=== PATIENT | male | born 1955 | race Two or more races ===

== ENCOUNTER 2024-04-05 10:34 | Emergency (ER) | payer OTHER, BC ==
[2024-04-05 10:51] VITALS: BP 129/69; PULSE 88; RESP 18; TEMP 97.7; BMI 16.2
[2024-04-05 12:15] LABS: BASO % 0.6 % (0-2.0); EOS % 0.2 % (0-4.5); HEMATOCRIT 39.9 % (35.4-49); HEMOGLOBIN 14.4 GM/dL (11.7-16.9); LYMPH % 14.7 % (8-40); MCH 30.3 pg (25.7-33.7); MEAN CELL VOLUME 84.1 fl (80-96); MEAN PLT VOLUME 9.3 fl (7.5-11.1); MONO % 8.9 % (3.8-10.2); NEUT % 75.6 % (42.8-82.8); PLATELET COUNT 206 10^3/uL (134-434); RBC 4.74 M/mm3 (4.00-5.60); RDW 14.6 % (11.9-15.9); WHITE BLOOD COUNT 6.9 K/mm3 (4.0-10.0)
[2024-04-05 12:22] LABS: INR 1.19 (0.83-1.09); PROTHROMBIN TIME (PATIENT) 13.6 SEC (9.7-13.0)
[2024-04-05 12:25] LABS: EPI CELLS 6 /uL (0-25.1); HYALINE CASTS 0 /uL (0-3.1); URINE APPEARANCE CLEAR; URINE BACTERIA 1 /uL (0-1359); URINE BILIRUBIN NEGATIVE (NEGATIVE); URINE COLOR YELLOW; URINE GLUCOSE (UA) 2+ (NEGATIVE); URINE KETONE 2+ (NEGATIVE); URINE LEUK ESTERASE NEGATIVE (NEGATIVE); URINE NITRITE NEGATIVE (NEGATIVE); URINE PROTEIN 1+ (NEGATIVE); URINE RBC 7 /uL (0-23.9); URINE WBC 8 /uL (0-25.8)
[2024-04-05 12:32] LABS: POTASSIUM 3.5 mmol/L (3.5-5.1)
[2024-04-05 12:34] LABS: BLOOD UREA NITROGEN 19.4 mg/dL (7-18)
[2024-04-05 12:35] LABS: ALBUMIN 3.4 g/dl (3.4-5.0)
[2024-04-05 12:37] LABS: CALCIUM 8.7 mg/dL (8.5-10.1); MAGNESIUM 1.8 mg/dL (1.8-2.4)
[2024-04-05 12:38] LABS: CREATININE 0.7 mg/dL (0.55-1.3)
[2024-04-05 12:40] LABS: BILIRUBIN,TOTAL 0.9 mg/dL (0.2-1)
[2024-04-05] MEDS: SODIUM CHLORIDE 1,000 ML IV ONE (14:37)
== END 2024-04-05 17:00 | disposition home or self-care (01) ==
LOC: JER 10:34
PROC: 3E0337Z Introduction of Electrolytic and Water Balance Substance into Peripheral Vein, Percutaneous Approach (ICD-10-PCS; principal; 2024-04-05)
DX: R53.1 Weakness (principal); R10.30 Lower abdominal pain, unspecified; R53.81 Other malaise; R63.0 Anorexia; Z20.822 Contact with and (suspected) exposure to COVID-19
CPT/HCPCS: 0241U-QW; 36415; 70260-TC-FY; 70450-TC; 71045-TC-FY; 74018-TC-FY; 80053; 81003; 82962; 83735; 84484; 85025; 85610; 85730; 93005; 93010; 99285-25

== ENCOUNTER 2024-04-19 22:14 | Emergency (ER) | payer OTHER, BC ==
[2024-04-19 22:18] VITALS: TEMP 97.7; BMI 18.6
[2024-04-19] MEDS ORDERED: LIDOCAINE HCL 2% JELLY 6 ML TP ONE (23:17)
[2024-04-19] MEDS: LIDOCAINE HCL 2% JELLY 6 ML TP ONE (23:26)
[2024-04-19] MEDS: LIDOCAINE HCL 2% JELLY 10 ML CARTRIDGE UR ONE (23:41)
[2024-04-19 23:47] LABS: BASO % 0.4 % (0-2.0); EOS % 0.1 % (0-4.5); HEMATOCRIT 40.4 % (35.4-49); HEMOGLOBIN 14.4 GM/dL (11.7-16.9); LYMPH % 9.2 % (8-40); MCH 30.2 pg (25.7-33.7); MCHC 35.6 g/dl (32.0-35.9); MEAN CELL VOLUME 84.6 fl (80-96); MEAN PLT VOLUME 9.5 fl (7.5-11.1); MONO % 8.5 % (3.8-10.2); NEUT % 81.8 % (42.8-82.8); PLATELET COUNT 192 10^3/uL (134-434); RBC 4.77 M/mm3 (4.00-5.60); RDW 14.6 % (11.9-15.9); WHITE BLOOD COUNT 10.3 K/mm3 (4.0-10.0)
[2024-04-19 23:49] LABS: EPI CELLS 14 /uL (0-25.1); HYALINE CASTS 2 /uL (0-3.1); PH,URINE 5.5 (5.0-8.0); URINE APPEARANCE CLEAR; URINE BACTERIA 4 /uL (0-1359); URINE BILIRUBIN 2+ (NEGATIVE); URINE COLOR DK YELLOW; URINE GLUCOSE (UA) 1+ (NEGATIVE); URINE KETONE 3+ (NEGATIVE); URINE LEUK ESTERASE NEGATIVE (NEGATIVE); URINE NITRITE NEGATIVE (NEGATIVE); URINE PROTEIN 1+ (NEGATIVE); URINE RBC 17 /uL (0-23.9); URINE WBC 12 /uL (0-25.8)
[2024-04-20 00:06] LABS: POTASSIUM 3.8 mmol/L (3.5-5.1)
[2024-04-20 00:09] LABS: ALBUMIN 3.3 g/dl (3.4-5.0); BLOOD UREA NITROGEN 14.7 mg/dL (7-18); CALCIUM 8.8 mg/dL (8.5-10.1); MAGNESIUM 1.7 mg/dL (1.8-2.4)
[2024-04-20 00:11] LABS: CREATININE 0.7 mg/dL (0.55-1.3)
[2024-04-20 00:13] LABS: BILIRUBIN,TOTAL 0.8 mg/dL (0.2-1); TOT PROT 5.7 g/dl (6.4-8.2)
[2024-04-20] MEDS ORDERED: CEPHALEXIN MONOHYDRATE 500 MG CAPSULE (UD) ONE (01:17)
[2024-04-20] MEDS ORDERED: MAGNESIUM OXIDE 400 MG TABLET (FP) ONE (01:17)
[2024-04-20] MEDS: MAGNESIUM OXIDE 400 MG TABLET (FP) PO ONE (01:21)
[2024-04-20] MEDS: CEPHALEXIN MONOHYDRATE 500 MG CAPSULE (UD) PO ONE (01:21)
[2024-04-20 01:40] VITALS: BP 133/71; PULSE 78; RESP 16
== END 2024-04-20 01:50 | disposition home or self-care (01) ==
LOC: JER 22:14
DX: R33.9 Retention of urine, unspecified (principal); R10.30 Lower abdominal pain, unspecified
CPT/HCPCS: 36415; 80053; 81003; 83735; 85025; 87086; 99284-25

== ENCOUNTER 2024-07-20 18:28 | Inpatient (IN) | payer OTHER, BC ==
[2024-07-20] MEDS: ONDANSETRON *ODT* 4 MG TABLET SL ONE (19:43)
[2024-07-20] MEDS ORDERED: ONDANSETRON *ODT* 4 MG TABLET ONE (19:43)
[2024-07-20] MEDS ORDERED: ACETAMINOPHEN 500 MG TABLET (FP) ONE (20:29)
[2024-07-20] MEDS: ACETAMINOPHEN 500 MG TABLET (FP) PO ONE (20:32)
[2024-07-20 21:32] LABS: HEMATOCRIT 40.9 % (35.4-49); MCH 31.4 pg (25.7-33.7); MCHC 34.2 g/dl (32.0-35.9); MEAN CELL VOLUME 91.8 fl (80-96); MEAN PLT VOLUME 8.9 fl (7.5-11.1); PLATELET COUNT 169 10^3/uL (134-434); RBC 4.46 M/mm3 (4.00-5.60); RDW 13.2 % (11.9-15.9)
[2024-07-20 21:56] LABS: INR 1.17 (0.83-1.09); PROTHROMBIN TIME (PATIENT) 13.2 SEC (9.7-13.0)
[2024-07-20 22:11] LABS: POTASSIUM 4.2 mmol/L (3.5-5.1)
[2024-07-20 22:13] LABS: CALCIUM 9.2 mg/dL (8.5-10.1)
[2024-07-20 22:14] LABS: BLOOD UREA NITROGEN 13.4 mg/dL (7-18)
[2024-07-20 22:15] LABS: ALBUMIN 3.5 g/dl (3.4-5.0)
[2024-07-20 22:17] LABS: CREATININE 0.7 mg/dL (0.55-1.3)
[2024-07-20 22:19] LABS: BILIRUBIN,TOTAL 0.5 mg/dL (0.2-1); TOT PROT 6.1 g/dl (6.4-8.2)
[2024-07-20 23:56] LABS: ANISOCYTOSIS 1+; MACROCYTOSIS 0
[2024-07-21] MEDS: CEFTRIAXONE 1 GM in DEXTROSE 5%-WATER - 50 ML IVPB SCH (03:19)
[2024-07-21 04:43] LABS: EPI CELLS 11 /uL (0-25.1); HYALINE CASTS 0 /uL (0-3.1); PH,URINE 7.5 (5.0-8.0); URINE APPEARANCE CLEAR; URINE BACTERIA 72 /uL (0-1359); URINE BILIRUBIN NEGATIVE (NEGATIVE); URINE COLOR YELLOW; URINE GLUCOSE (UA) 3+ (NEGATIVE); URINE KETONE TRACE (NEGATIVE); URINE LEUK ESTERASE 1+ (NEGATIVE); URINE NITRITE NEGATIVE (NEGATIVE); URINE PROTEIN NEGATIVE (NEGATIVE); URINE RBC 6 /uL (0-23.9); URINE UROBILINOGEN 0.2 mg/dL (0.2-1.0); URINE WBC 227 /uL (0-25.8)
[2024-07-21 07:44] LABS: INR 1.19 (0.83-1.09); PROTHROMBIN TIME (PATIENT) 13.4 SEC (9.7-13.0)
[2024-07-21 07:45] LABS: ACTIVATED PTT 26.8 SECONDS (25.2-36.5)
[2024-07-21 07:47] LABS: BASO % 0.3 % (0-2.0); EOS % 0.1 % (0-4.5); HEMATOCRIT 37.2 % (35.4-49); HEMOGLOBIN 12.7 GM/dL (11.7-16.9); LYMPH % 11.5 % (8-40); MCH 31.5 pg (25.7-33.7); MCHC 34.1 g/dl (32.0-35.9); MEAN CELL VOLUME 92.3 fl (80-96); MONO % 9.5 % (3.8-10.2); NEUT % 78.6 % (42.8-82.8); PLATELET COUNT 225 10^3/uL (134-434); RBC 4.03 M/mm3 (4.00-5.60); RDW 13.1 % (11.9-15.9); WHITE BLOOD COUNT 9.6 K/mm3 (4.0-10.0)
[2024-07-21 07:59] LABS: POTASSIUM 3.9 mmol/L (3.5-5.1)
[2024-07-21 08:10] LABS: ALBUMIN 2.8 g/dl (3.4-5.0); BLOOD UREA NITROGEN 12.1 mg/dL (7-18); CALCIUM 8.5 mg/dL (8.5-10.1)
[2024-07-21 08:11] LABS: MAGNESIUM 1.7 mg/dL (1.8-2.4)
[2024-07-21 08:13] LABS: CREATININE 0.5 mg/dL (0.55-1.3)
[2024-07-21 08:15] LABS: BILIRUBIN,TOTAL 0.4 mg/dL (0.2-1)
[2024-07-21 13:20] VITALS: BMI 15.5
[2024-07-21] MEDS: MUPIROCIN 2% TOPICAL OINTMENT FOR DECOLONIZATION NS SCH (14:24)
[2024-07-21] MEDS ORDERED: CHLORHEXIDINE GLUCONATE 4% CLEANSER FOR DECOLONIZATION TP SCH ×3 (22:00)
[2024-07-21] MEDS ORDERED: MUPIROCIN 2% TOPICAL OINTMENT FOR DECOLONIZATION NS SCH ×2 (22:00)
[2024-07-22] MEDS: glipiZIDE 5 MG TABLET (FP) PO SCH (06:24)
[2024-07-22] MEDS: metFORMIN HCL 500 MG TABLET (FP) PO SCH (06:24)
[2024-07-22] MEDS ORDERED: glipiZIDE 5 MG TABLET (FP) PO SCH (07:00)
[2024-07-22] MEDS ORDERED: metFORMIN HCL 500 MG TABLET (FP) PO SCH (07:00)
[2024-07-22] MEDS ORDERED: TAMSULOSIN HCL 0.4 MG CAP PO SCH (08:30)
[2024-07-22] MEDS ORDERED: MAGNESIUM SULF 50% (8.12 MEQ/2 ML-1 GM VIAL) IVPB ONE (08:30)
[2024-07-22] MEDS ORDERED: CEFTRIAXONE 1 GM in DEXTROSE 5%-WATER - 50 ML IVPB SCH (10:00)
[2024-07-22] MEDS: MAGNESIUM 1GM/D5W 100ML - 100 ML IVPB IVPB ONE (10:15)
[2024-07-22] MEDS: TAMSULOSIN HCL 0.4 MG CAP PO SCH (10:16)
[2024-07-22] MEDS: CEFTRIAXONE 1 GM in DEXTROSE 5%-WATER - 50 ML IVPB SCH (10:17)
[2024-07-22] MEDS: INSULIN ASPART SLIDING SCALE (NOVOLOG) 1 VIAL SQ SCH (12:35)
[2024-07-22] MEDS: ATORVASTATIN CA 20 MG TABLET (FP) PO SCH (21:21)
[2024-07-23 11:14] LABS: HEMATOCRIT 40.2 % (35.4-49); MCH 31.9 pg (25.7-33.7); MCHC 34.8 g/dl (32.0-35.9); MEAN CELL VOLUME 91.7 fl (80-96); MEAN PLT VOLUME 9.1 fl (7.5-11.1); PLATELET COUNT 221 10^3/uL (134-434); RBC 4.38 M/mm3 (4.00-5.60); RDW 13.1 % (11.9-15.9); WHITE BLOOD COUNT 7.3 K/mm3 (4.0-10.0)
[2024-07-23 11:48] LABS: POTASSIUM 3.8 mmol/L (3.5-5.1)
[2024-07-23 11:50] LABS: BLOOD UREA NITROGEN 10.1 mg/dL (7-18); CALCIUM 8.5 mg/dL (8.5-10.1); MAGNESIUM 1.9 mg/dL (1.8-2.4)
[2024-07-23 11:53] LABS: CREATININE 0.5 mg/dL (0.55-1.3)
[2024-07-24 09:09] VITALS: RESP 20
[2024-07-24] MEDS: amLODIPine BESYLATE 5 MG TABLET (FP) PO SCH (10:08)
[2024-07-24] MEDS: LACTULOSE 20 GM/30 ML UDC (FOR ORAL USE ONLY) PO ONE (11:08)
[2024-07-24] MEDS: POLYETHYLENE GLYCOL (HEALTHYLAX) 3350 17 GM PACKET PO SCH (11:25)
[2024-07-24 13:14] VITALS: BP 122/65; PULSE 61; TEMP 98.2
== END 2024-07-24 15:41 | disposition home health service (06) | DRG 85 ==
LOC: JER 18:28 → JERBED 21:36 → JICU 22:54 → J8W 07-21 17:27
PROVIDERS: ADMIT Internal Medicine Pulmonary Disease; ATTEND Nurse Practitioner Acute Care
DX: S06.6X0A Traumatic subarachnoid hemorrhage without loss of consciousness, initial encounter (principal); E43 Unspecified severe protein-calorie malnutrition; N39.0 Urinary tract infection, site not specified; Z68.1 Body mass index [BMI] 19.9 or less, adult; I10 Essential (primary) hypertension; E11.9 Type 2 diabetes mellitus without complications; E83.42 Hypomagnesemia; N40.0 Benign prostatic hyperplasia without lower urinary tract symptoms; D72.829 Elevated white blood cell count, unspecified; W17.89XA Other fall from one level to another, initial encounter; Y93.9 Activity, unspecified; Y99.9 Unspecified external cause status; Y92.098 Other place in other non-institutional residence as the place of occurrence of the external cause; Z98.2 Presence of cerebrospinal fluid drainage device
CPT/HCPCS: 36415; 70450-TC; 72125-TC; 72170-TC-FY; 73521-TC-FY; 76775-TC; 80048; 80053; 81003; 82962; 83735; 84100; 85025; 85027; 85610; 85730; 86803; 86850; 86900; 86901; 87040; 87086; 87389; 87635; 97116-GP; 97161-GP; 99284-25; 99285-25; Q0162